=== PATIENT | female | born 1970 | race Two or more races ===

== ENCOUNTER 2019-12-01 21:58 | Emergency (ER) | payer OTHER ==
[~2019-12-01] VITALS: Ht 170.2 cm; Wt 117.5 kg
[2019-12-02 00:57] VITALS: BP 148/94
== END 2019-12-02 01:55 | disposition home or self-care (01) ==
LOC: EDBD 21:58 → ER 22:02
DX: S93.402A Sprain of unspecified ligament of left ankle, initial encounter (principal); S43.401A Unspecified sprain of right shoulder joint, initial encounter; S33.5XXA Sprain of ligaments of lumbar spine, initial encounter; M62.838 Other muscle spasm; W18.09XA Striking against other object with subsequent fall, initial encounter; Y93.89 Activity, other specified; Y92.89 Other specified places as the place of occurrence of the external cause; Y99.0 Civilian activity done for income or pay
CPT/HCPCS: 72125; 72131; 73030; 73610